=== PATIENT | female | born 1945 | race Asian ===

== ENCOUNTER 2022-04-22 11:36 | Emergency (ER) | payer BC, MEDICAID ==
[~2022-04-22] VITALS: Ht 157.5 cm; Wt 68.0 kg
--- NOTE | 2022-04-22 11:40 | NUR ---
DR. ZENG BEDSIDE EVALUATING PT
[2022-04-22 11:43] VITALS: BP 147/80
--- NOTE | 2022-04-22 11:49 | NUR ---
W/C ASSISTED TO BED 3
--- NOTE | 2022-04-22 11:50 | NUR ---
PT CURRENTLY LAYING COMATOSE AT THIS TIME. PT NAME REPEATED, STERNAL RUB PERFORMED AND PT CONTINUES TO LAY COMATOSE. PT ON OPERATOR CATALYST CONCENTRATION BEDSIDE AND HR 97. BRACHIAL PULSES FELT BILATERAL AND ARE STRONG AND EQUAL. GAG REFLEX INTACT. ER MD MADE AWARE OF PT
--- NOTE | 2022-04-22 12:15 | NUR ---
# 16 FR Urinary catheter inserted utilizing sterile technique. Immediate return of 20 ml YELLOW urine noted. Urine sample collected and sent to lab. Pt tolerated procedure WELL.
--- NOTE | 2022-04-22 12:24 | NUR ---
BLOODWORK, IMCHEAL, AND INFLUENZA COLLECTED AND WALKED TO LAB
--- NOTE | 2022-04-22 12:32 | NUR ---
76/F BIB DAUGHTER IN [employer] WITH C/O WEAKNESS, COUGH AND BILATERAL HAND AND FEET SWELLING. STATES SHE HAD LABS DRAWN AT HER DOCTORS OFFICE LAST WEEK AND WAS TOLD SHE MAY NEED A BLOOD TRANSFUSION TO LOW BLOOD COUNT. DENIES FEVERS, CHILLS, CP, SOB. PT CURRENTLY DENIES ANY PAIN. PER [id number] PT HAS BEEN EXPERINCING GEN WEAK, BUT HAS STILL BEEN ACTING WNL. NO EDEMA NOTED ON PT HANDS/FEET AT THIS TIME. ABDOMEN IS SOFT AND NON-TENDER. PMH: CHF, DM, HTN, DEMENTIA NKA
[2022-04-22 12:44] LABS: BASOPHILS % (AUTO) 0.3 % (0.0-2.0); EOSINOPHILS # (AUTO) 0.1 K/uL (0-0.4); EOSINOPHILS % (AUTO) 0.7 % (0.0-4.0); HEMATOCRIT 25.1 % (36-48); LYMPHOCYTES # (AUTO) 2.5 K/uL (2.5-16.5); MEAN CORPUSCULAR HEMOGLOBIN 29 pg (27-31); MEAN CORPUSCULAR HGB CONC 32 g/dL (33-37); MEAN CORPUSCULAR VOLUME 92.1 fL (80-94); MONOCYTES # (AUTO) 1.1 K/uL (0.8-1.0); MONOCYTES % (AUTO) 10.5 % (1.7-9.3); NEUTROPHILS # (AUTO) 6.7 K/uL (1.8-7.7); NEUTROPHILS % (AUTO) 64.5 % (42.2-75.2); PLATELET COUNT (AUTO) 205 K/uL (140-450); RED BLOOD CELL COUNT(AUTO) 2.73 MIL/uL (4.20-5.40); RED CELL DISTRIBUTION WIDTH 17.9 % (11.6-13.7); WHITE BLOOD COUNT (AUTO) 10.4 K/uL (4.8-10.8)
[2022-04-22 12:52] LABS: ALBUMIN 2.1 g/dL (3.4-5.0); ANION GAP 12.1 (8-16); ASPARTATE AMINOTRANSFERASE 25 U/L (15-37); CARBON DIOXIDE 31.1 mmol/L (21-32); CHLORIDE 99 mmol/L (98-107); CREATININE 2.3 mg/dL (0.6-1.3); GLUCOSE 136 mg/dL (74-106); POTASSIUM 3.2 mmol/L (3.5-5.1); SODIUM SERUM 139 mmol/L (136-145); UREA NITROGEN, BLOOD 55 mg/dL (7-18)
--- NOTE | 2022-04-22 13:39 | NUR ---
Patient appears to be resting comfortably in bed. Vital Signs within normal limits. Respirations even and unlabored. PT RESTING WITH EYES OPEN. NO SIGNS OF DISTRESS NOTED
--- NOTE | 2022-04-22 14:01 | NUR ---
MED REC COMPLETED FOR PATIENT
[2022-04-22] MEDS ORDERED: FUROSEMIDE 20 MG/2 ML VIAL IVP ONE (14:15)
--- NOTE | 2022-04-22 15:26 | NUR ---
PT ASSISTED TO AND FROM RESTROOM. PT RESPOSITIONED IN BED FOR COMFORT.
[2022-04-22] MEDS ORDERED: LORazepam 2 MG/ML VIAL IVP ONE (16:30)
--- NOTE | 2022-04-22 16:40 | NUR ---
Patient to be transferred to [facility]. Is being transferred due to HIGHER LEVEL OF CARE. Receiving facility has accepting physician and available space. ER physician has signed transfer form. Patient or responsible democrat has agreed to transfer and signed form. Patient belongings inventoried and will be sent with patient. Copy of nursing notes, lab reports, EKG, Physicians Orders and X-rays to be sent with patient. Report called to RUBÉN CORDOBA at receiving facility. [facility] ambulance service has been called for transfer. ETA is 1640.
[2022-04-22 16:53] VITALS: BP 141/68
--- NOTE | 2022-04-22 16:53 | NUR ---
[facility] [place] BEDSIDE FOR PT [place]
--- NOTE | 2022-04-22 16:57 | NUR ---
PT TAKEN TO [facility] BY ERNIE VIA LIZ
== END 2022-04-22 16:57 | disposition short-term general hospital (02) ==
LOC: MED 11:36
DX: I24.9 Acute ischemic heart disease, unspecified (principal); Z20.822 Contact with and (suspected) exposure to COVID-19; K92.2 Gastrointestinal hemorrhage, unspecified; I50.9 Heart failure, unspecified; E11.22 Type 2 diabetes mellitus with diabetic chronic kidney disease; I12.9 Hypertensive chronic kidney disease with stage 1 through stage 4 chronic kidney disease, or unspecified chronic kidney disease; N18.9 Chronic kidney disease, unspecified; D64.9 Anemia, unspecified; F03.90 Unspecified dementia, unspecified severity, without behavioral disturbance, psychotic disturbance, mood disturbance, and anxiety; Z98.890 Other specified postprocedural states
CPT/HCPCS: 36415; 70450; 71045; 80053; 81002; 83605; 83880; 84484; 85025; 85610; 85730; 86886; 86900; 86901; 87040; 87086; 87426; 87804; 93005; 96374; 96375; 99291; J1940; J2060; 87186